=== PATIENT | male | born 1990 | race Caucasian/White ===

== ENCOUNTER 2017-12-31 06:48 | Day surgery (SDC) | payer OTHER, SELFPAY ==
[2017-12-31] VITALS (7 sets, daily range): BP systolic 110–120; BP diastolic 64–78; PULSE 58–75; RESP 16–18; TEMP 36.6–36.9; O2SAT 93–100; BMI 25.2
--- NOTE | 2017-12-31 07:52 | DCINST_ITS ---
Discharge Diet: No Restrictions May shower in (days): 1 Ice area for (Minutes): 20 - Ice area for 20 minutes each hour while awake Keep extremity elevated above heart level: Operative Extremity, Right Arm Call your doctor if your incision/area has: Continuous Slow Oozing, Sudden Increased Bleeding, Increased Pain/ Swelling, Increased Redness, Foul Smelling Discharge Call your doctor if you observe: Fever of 101 or Higher, Coldness, Increased Pain, Numbness or Tingling, Change in Color Suture Line Care: Avoid Pulling/Pushing, Avoid Pinching/Bending Cleanse incision/area with: Keep Dressing Clean & Dry Test Results: Test results from this visit will be discussed in further detail at your follow- up appointment, if applicable. Please Follow Up With: Taylor Eller When: as scheduled
--- NOTE | 2017-12-31 07:52 | PCM.OPRPT ---
Report of Operation Date of Procedure: 12/31/17 Pre-Operative Diagnosis: Partial amputation right middle finger Post-Operative Diagnosis: Same Surgery/Procedure Performed:: Revision amputation right middle finger Type of Anesthesia:: General Anesthesiologist: Jonel Jeffries Estimated Blood Loss (mL): 25 Fluids Replaced: See anesthesia report Description of Procedure: Surgical indications: Injury is a 27-year-old male that was using a jointer. He suffered an injury to his right middle finger shearing off the volar aspect of the distal phalanx. His nail in the dorsal aspect was maintained. Patient has had a previous injury to his right index finger from an industrial injury as well and is status post amputation. He is right-hand dominant. Procedure description: Florentin was greeted in the preoperative area. His right middle finger was marked with surgical marker. Preoperative antibiotics were administered he was then taken or [address] in stable condition. After adequate anesthesia was obtained and airway secured His hand was then prepped and draped in usual sterile fashion. Surgical timeout was performed and surgery was commenced. Patient had essentially a full length of the dorsal aspect of his middle finger however volar half was missing to approximately 5 mm beyond the distal interphalangeal crease. I irrigated this finger and then ellipticized the remaining distal phalanx removing that bone at the DIP joint. I then assessed how much coverage I would be able to obtain with the volar tissue in order to determine how much dorsal tissue would need to be maintained. Once the scar is far dorsally as possible unfortunately with which tissue loss volarly appears that the scar will be very distal aspect of the finger. At this point determining how much dorsal tissue be required made a fishmouth type incision and removed the dorsal tissue proximal to the germinal matrix. I then cleaned the volar incision to make this smooth as possible and closed the wound over the middle phalanx with inverted 2-0 Vicryl and 4-0 nylon in the skin. Did not identify any dogears in the came together quite nicely without any tension on the repair. A well-padded nonadherent dressing was then applied patient was taken to the recovery room in stable condition. The stitches will be remained for approximately 2 weeks. Patient was taken to the recovery room in stable condition - Complications None known - Admit VTE Documentation VTE Present on Admission: Yes VTE Mechan Device Prophylaxis: SCD's Reason prophylaxis not ordered:: Procedure Not Indicated
[2017-12-31] MEDS: Bupivacaine Mpf 0.5% 30 ML VIAL (08:44)
== END 2017-12-31 10:25 | disposition home or self-care (01) ==
LOC: SDC 06:53 → AC 06:55
PROVIDERS: Family Provider Family Medicine; PCP Family Medicine; Visit Provider Orthopaedic Surgery
PROC: (CPT 26055; principal; 2017-12-31 08:30)
DX: S68.122A Partial traumatic metacarpophalangeal amputation of right middle finger, initial encounter (principal); W29.8XXA Contact with other powered hand tools and household machinery, initial encounter; Y93.89 Activity, other specified; Y92.9 Unspecified place or not applicable; Y99.9 Unspecified external cause status
CPT/HCPCS: 26951; J7120; J2405